=== PATIENT | female | born 1975 | race Caucasian/White ===

== ENCOUNTER 2017-08-04 10:27 | Emergency (ER) | payer OTHER ==
[~2017-08-04] VITALS: Ht 162.6 cm; Wt 90.7 kg
[~2017-08-04 10:27] MED LIST: B12 1MG PE1000 MCG/M PO; BACTRIM DS TAB1 EACH PO; CLARITIN10 M1 PO; CYCLOBENZAPRINE10 M1 PO; GOOD NEIGHBOR650 M1 PO; HYDROCHLOROTHIA25 M1 PO; HYDRODIURIL 2525 MG PO; LEVOTHYROXIN0.075 MG PO; MEDROXYPROG150 MG/ML IM; MORPHINE SULFAT15 M2 PO; PRISTIQ100 MG PO; PROPRANOLOL HCL20 MG PO; RITE AID BIO2500 MCG PO; XARELTO15 MG PO; XARELTO20 MG PO; ZOFRAN ODT4 M1 SL
--- NOTE | 2017-08-04 11:32 | ED GI/GU/ABDOMINAL COMPLAINT ---
History of Present Illness General Chief Complaint: Abdominal Pain/Flank Pain Stated Complaint: L LOWER ABD PAIN Source: patient Exam Limitations: no limitations Vital Signs & Intake/Output Vital Signs & Intake/Output Vital Signs Date Time Temp Pulse Resp B/P B/P Pulse O2 O2 Flow FiO2 Mean Ox Delivery Rate 08/04 1324 97.4 87 18 150/79 98 08/04 1143 Room Air 08/04 1037 98.1 80 18 158/116 97 Room Air Allergies Coded Allergies: NO KNOWN ALLERGIES (05/06/14) Reconcile Medications Acetaminophen (Arthritis Pain Relief) 650 MG TABLET.ER 1 TAB PO Q4P PRN PAIN TAKE NEEDED FOR PAIN SCALE 3-5 OUT OF 10. TAKE WITH FOOD. Cyanocobalamin (Cyanocobalamin Injection) 1,000 MCG/ML VIAL 1 ML PO [id number] SUPPLEMENT (Reported) Cyclobenzaprine HCl 10 MG TABLET 1 TAB PO TID muscle spasm Desvenlafaxine Succinate (Pristiq ER) 100 MG TAB.ER.24H 1 TAB PO DAILY DEPRESSION (Reported) Hydrochlorothiazide (Hydrodiuril 25 MG Tab) 25 MG TABLET 1 TAB PO DAILY BP ( Reported) Hydrochlorothiazide 25 MG TABLET 1 TAB PO DAILY WATER RETENTION (Reported) Levothyroxine Sodium 75 MCG TABLET 1 TAB PO DAILY AC THYROID (Reported) Loratadine (Claritin) 10 MG TABLET 1 TAB PO DAILY ALLERGIES (Reported) Morphine Sulfate 15 MG TABLET 1 TAB PO Q6P PRN PAIN TAKE WHEN PAIN 5-10 Ondansetron (Zofran Odt) 4 MG TAB.RAPDIS 1 TAB SL TID PRN nausea Ondansetron HCl (Zofran) 4 MG TABLET 1 TAB PO Q6-8P PRN NAUSEA PROPRANOLOL HCL (Propranolol HCl) 20 MG TABLET 1 TAB PO DAILY MIGRAINES ( Reported) Rivaroxaban (Xarelto) 15 MG TABLET 1 TAB PO BID PRN BLOOD CLOT WITH FOOD TAKE THIS MEDICATION ONCE IN AM AND ONCE IN PM FOR TOTAL OF 21 DAYS THEN CHANGE TO THEN 20MG DAILY DO NOT USE WITH ASA, NSAIDS, PLAVIX, WARAFRIN, AND OTHER MEDICATIONS WHICH TREAT OR PREVENT BLOOD CLOTS. Rivaroxaban (Xarelto) 20 MG TABLET 1 TAB PO DAILY Blood clots with food and start this after you have finished taking the 21 days worth of 15mg Xarelto twice a day (one in AM and one in PM). For this one a day 20mg you will take at the same time you took the AM dose when on the 15mg form. DO NOT USE ASA, ASPRIN, NSAIDS, PLAVIX, AND OTHER MEDICATIONS WHICH TREAT OR PREVENT BLOOD CLOTS. Sulfamethoxazole/Trimethoprim (Bactrim Ds Tablet) 1 EACH TABLET 1 TAB PO BID INFECTION (Reported) Tamsulosin HCl (Flomax) 0.4 MG CAP.ER.24H 1 CAP PO DAILY PRN KIDNEY STONE Triage Note: 42F WITH LOW PELVIC LEFT SIDED PAIN. HX HYSTERECTOMY, STILL HAS OVARIES AND TUBES. REPORTS BLEEDING NOTED IN TOILET WITH VOIDING AND ON TOILET PAPER. THIS STARTED APPROX 7AM YESTERDAY. ABDOMINAL PAIN SEVERE THIS AM WITH ASSOCIATED VOMITING. CURRENTLY SEXUALLY ACTIVE. DENIES DYSURIA. DENIES RADIATION OF PAIN, PAIN IS CONSTANT WITH WORSENING EXACERBATIONS. HX NEPHROLITHIASIS. HYPERTENSIVE IN TRIAGE, DENIES HEADACHE. LAST BM THIS MORNING AND NORMAL, DENIES BLOOD/BLACK STOOL Triage Nurses Notes Reviewed? yes ? N Is pt currently ? No Onset: Gradual Duration: better, intermittent Timing: recent history Location: left flank Radiation: no radiation HPI: Patient is a 42-year-old female with a past medical history of kidney stone PE and hypertension who is remote hysterectomy due to excessive vaginal bleeding presents emergency room with a 24-hour history of waxing waning left-sided localized flank pain. Patient states that she has darkened bloody urine denies any dysuria. Patient has had one episode today of vomiting Denies any fever chills are pain jaw pain chest pain shortness of breath dyspnea on exertion leg swelling or hemoptysis. No change in symptoms with eating or drinking Patient took Tylenol prior to arrival with significant relief of symptoms (Be Fay) Past History Travel History Traveled to [place] past 21 day No Medical History Any Pertinent Medical History? see below for history Neurological: migraine EENT: NONE Cardiovascular: hypertension Respiratory: pulmonary embolism Gastrointestinal: NONE Hepatic: NONE Renal: KIDNEY STONES Musculoskeletal: NONE Psychiatric: depression Endocrine: hypothyroidism Blood Disorders: DVT Cancer(s): NONE RADIOLOGIC TECHNOLOGIST/Reproductive: NONE History of MRSA: Yes History of VRE: No History of CDIFF: No Surgical History Surgical History: hysterectomy Psychosocial History Who do you live with Other (see notes) Services at Home None What is your primary language Hebrew Tobacco Use: Never used ETOH Use: denies use Illicit Drug Use: marijuana Family History Family History, If Any: MOTHER Blood clots SISTER FH: hypertension Hx Contributory? No (Be Fay) Review of Systems Review of Systems Constitutional: Reports: no symptoms. EENTM: Reports: no symptoms. Respiratory: Reports: no symptoms. Cardiovascular: Reports: no symptoms. GI: Reports: see HPI, abdominal pain. Genitourinary: Reports: no symptoms. Musculoskeletal: Reports: no symptoms. Skin: Reports: no symptoms. Neurological/Psychological: Reports: no symptoms. Hematologic/Endocrine: Reports: no symptoms. Immunologic/Allergic: Reports: no symptoms. All Other Systems: Reviewed and Negative (Be Fay) Physical Exam Physical Exam General Appearance: no apparent distress, alert, comfortable Head: atraumatic Eyes: Bilateral: normal appearance. Ears, Nose, Throat, Mouth: hearing grossly normal Neck: normal inspection Respiratory: normal breath sounds Cardiovascular: regular rate/rhythm Gastrointestinal: normal bowel sounds, soft, LEFT FLANK PAIN UPON PALPATION Extremities: normal range of motion Neurologic/Psych: no motor/sensory deficits, awake Skin: intact, normal color Core Measures ACS in differential dx? No Sepsis Present: No Sepsis Focused Exam Completed? No (Be Fay) Progress Differential Diagnosis: AAA, AMI, appendicitis, biliary colic, bowel obstruction , colon cancer, cholecystitis, diverticulitis, ectopic , endometritis, esophageal varices, gastritis, hepatitis, hernia, hemorrhoids, ischemic bowel, inflamm bowel dis, intrauterine , kidney stone, Corina-Vikash tear, ovarian cyst, ovarian torsion, pancreatitis, PID/cervicitis, peptic ulcer, PUD/ GERD, perforated viscous, SBO, threatened AB, UTI/pyelo Plan of Care: Orders Procedure Date/time Status Add-on Test (ER Only) 08/04 1148 Active HUMAN BETA HCG SCREEN 08/04 1125 Complete LIPASE 08/04 1040 Complete COMPREHENSIVE METABOLIC PANEL 08/04 1040 Complete CBC WITHOUT DIFFERENTIAL 08/04 1040 Complete URINE 08/04 1039 Complete URINALYSIS 08/04 1039 Complete Laboratory Tests 08/04/17 1247: Urine Color BLDY H, Urine Clarity HAZY H, Urine pH 6.0, Ur Specific Palacios 1.025, Urine Protein 30 H, Urine Ketones NEG, Urine Nitrite NEG, Urine Bilirubin NEG, Urine Urobilinogen 0.2, Ur Leukocyte Esterase NEG, Ur Microscopic SEDIMENT EXAMINED, Urine RBC PACKD H, Urine WBC RARE, Ur Epithelial Cells FEW, Urine Bacteria RARE H, Urine Hemoglobin LARGE H, Urine Glucose NEG, Urine Test NEGATIVE 08/04/17 1125: Anion Gap 11, Estimated GFR > 60, BUN/Creatinine Ratio 21.4, Glucose 101 H, Calcium 9.6, Total Bilirubin 0.8, AST 24, ALT 29, Alkaline Phosphatase 34, Total Protein 7.4, Albumin 4.6, Globulin 2.8, Albumin/Globulin Ratio 1.6, Lipase 46, Total Beta HCG NEGATIVE, CBC w Diff NO MAN DIFF REQ, RBC 4.71, MCV 87.9, MCH 29.6, MCHC 33.7, RDW 13.0, MPV 7.2 L, Gran % 70.3, Lymphocytes % 21.4, Monocytes % 7.2, Eosinophils % 0.7, Basophils % 0.4, Absolute Granulocytes 9.0 H, Absolute Lymphocytes 2.7, Absolute Monocytes 0.9 H, Absolute Eosinophils 0.1 , Absolute Basophils 0.1 Patient upon initial presentation was offered pain medications and declines, I discussed patient's CT scan findings with her for concerns of left-sided kidney stone and ovarian cyst patient was given copies of CT scan for follow-up. Patient was offered pain medications however she only requested Tylenol. Upon discharge patient looks so no apparent distress and was able to tolerate by mouth Diagnostic Imaging: Viewed by Me: CT Scan. Radiology Impression: acute abnormality Initial ED EKG: none Comments: PATIENT: MADHURI SPEAR PRESENT AGE: 42 PATIENT ACCOUNT NO: [id number] : 77 LOCATION: [facility] ORDERING PHYSICIAN: Be COLIN SERVICE DATE: 08/04/170 EXAM TYPE: CAT - CT ABD & PELVIS W/O IV CONTRAS EXAMINATION: CT ABDOMEN AND PELVIS WITHOUT CONTRAST CLINICAL INFORMATION: Left lower quadrant pain. COMPARISON: CT scan of the abdomen and pelvis dated 05/07/2014. TECHNIQUE: Multidetector volumetric imaging was performed from the superior aspect of the liver through the pubic symphysis. Sagittal and coronal reformatted images were obtained on the technologist workstation. DLP: 502.38 mGy-cm. FINDINGS: LUNG BASES: The visualized lung bases are unremarkable. LIVER, GALLBLADDER, AND BILIARY TREE: The liver is normal in size, shape, and attenuation. No focal hepatic lesion on noncontrast imaging. No biliary ductal dilatation is present. The gallbladder is unremarkable with no evidence of radiopaque gallstones, gallbladder wall thickening, or obvious pericholecystic inflammatory changes. PANCREAS: Unremarkable on noncontrast imaging. SPLEEN, ADRENAL GLANDS: Unremarkable on noncontrast imaging. KIDNEYS AND URETERS: There is mild left-sided hydroureteronephrosis due to a 0.4 x 0.2 cm calculus in the mid left ureter (series 2, image 54) with mean attenuation values of approximately 366 Hounsfield units. This calcification projects just below the left L4 transverse process. The ureter distal to this calcification is decompressed and unremarkable. The right kidney is unremarkable with no renal or ureteral calculi seen. Bilaterally, no focal renal mass is appreciated on noncontrast study. BLADDER: Partially distended and unremarkable. PELVIC VISCERA: The patient is status post hysterectomy. The right ovary is asymmetrically larger compared to the left side with small cystic changes in both ovaries seen. Largest cyst is noted in the right ovary, measuring 2.5 cm in diameter. Findings are incompletely characterized on noncontrast study, but likely due to physiologic cysts. GASTROINTESTINAL TRACT: Mild sigmoid colonic diverticulosis is seen with no evidence of acute diverticulitis. The small and large bowel are unremarkable. The appendix is unremarkable. ABDOMINAL WALL: There is a tiny fat-containing umbilical hernia. LYMPH NODES, VASCULAR: Unremarkable. OSSEOUS STRUCTURES: Mild multilevel vertebral spondylosis in the thoracolumbar spine. Benign sclerotic bone island in right pubic symphysis. IMPRESSION: 1. Mild left-sided hydroureteronephrosis due to a 0.4 x 0.2 cm mid left ureteral calcification. This calcification is small and difficult to characterize, but likely represents a uric acid stone. 2. No additional renal, ureteral or bladder calculi. Right kidney unremarkable. 3. Status post hysterectomy with prominent cystic bilateral ovaries, larger on the right side than the left. Clinical correlation is requested. Follow-up pelvic ultrasound as an outpatient in 4-6 weeks can be considered for reassessment of the ovaries. 4. Mild sigmoid colonic diverticulosis. 5. Tiny fat-containing umbilical hernia. 6. Multilevel degenerative changes in the thoracolumbar spine. DICTATED BY: Solo NÚÑEZ,Azalia Landry DATE/TIME DICTATED:08/04/171318 PHARMACY OPERATIONS SPECIALIST:RAD.HANSEN DATE/TIME TRANSCRIBED:08/04/171318 CONFIDENTIAL, DO NOT COPY WITHOUT APPROPRIATE AUTHO (Be Fay) Departure Departure Disposition: HOME OR SELF CARE Condition: Stable Clinical Impression Primary Impression: Kidney stone on left side Secondary Impressions: Ovarian cyst Referrals: Hebert NÚÑEZ,Bradly Jacobs MD,Jhonathan (PCP/Family) Additional Instructions: As discussed begin [id number] Tylenol for pain and inflammation, begin the prescription of Flomax for your symptoms and Zofran for nausea. On Sunday please follow up with urologist Dr. Ambrosio for further evaluation treatment. Prescriptions are waiting and [facility] [place]. On Sunday follow-up with your DRESSMAKER HELPER for reevaluation of your ovarian cyst noted on CT scan. Please provide them with copies of CT scan provided to the emergency room. If symptoms worsen return to emergency room Departure Forms: Customer Survey General Discharge Information Prescriptions: Current Visit Scripts Tamsulosin HCl (Flomax) 1 CAP PO DAILY PRN KIDNEY STONE #20 CAP Ondansetron HCl (Zofran) 1 TAB PO Q6-8P PRN NAUSEA #12 TAB (Be Fay) PA/GRADES 9 THRU 12 VISITING TEACHER Co-Sign Statement Statement: ED Attending supervision documentation- I saw and evaluated the patient. I have also reviewed all the pertinent lab results and diagnostic results. I agree with the findings and the plan of care as documented in the PA's/GRADES 9 THRU 12 VISITING TEACHER's documentation. x I have reviewed the ED Record and agree with the PA's/GRADES 9 THRU 12 VISITING TEACHER's documentation. [] Additions or exceptions (if any) to the PAs/GRADES 9 THRU 12 VISITING TEACHER's note and plan are summarized below: [] (Forest NÚÑEZ,Ray)
[2017-08-04 11:40] LABS: ABSOLUTE BASOPHIL COUNT 0.1 /CUMM (0.0-0.2); ABSOLUTE EOSINOPHIL COUNT 0.1 /CUMM (0.0-0.7); ABSOLUTE LYMPH COUNT 2.7 /CUMM (1.2-3.4); ABSOLUTE MONOCYTE COUNT 0.9 /CUMM (0.10-0.60); BASOPHIL % 0.4 % (0.0-2.0); EOSINOPHIL % 0.7 % (0-5); GRANULOCYTE % 70.3 % (42.2-75.2); HEMATOCRIT 41.4 % (37-47); MEAN CORPUSCULAR HGB 29.6 PG (27.0-31.0); MEAN CORPUSCULAR HGB CONC 33.7 G/DL (33.0-37.0); MEAN CORPUSCULAR VOLUME 87.9 FL (81.0-99.0); MEAN PLATELET VOLUME 7.2 FL (7.4-10.4); PLATELET COUNT 467 /CUMM (130-400); RED BLOOD CELL CT 4.71 /CUMM (4.20-5.40); WHITE BLOOD CELL COUNT 12.8 /CUMM (4.8-10.8)
[2017-08-04 13:24] VITALS: BP 150/79
--- NOTE | 2017-08-04 13:37 | CT SCAN REPORT ---
EXAMINATION: CT ABDOMEN AND PELVIS WITHOUT CONTRAST CLINICAL INFORMATION: Left lower quadrant pain. COMPARISON: CT scan of the abdomen and pelvis dated 05/07/2014. TECHNIQUE: Multidetector volumetric imaging was performed from the superior aspect of the liver through the pubic symphysis. Sagittal and coronal reformatted images were obtained on the technologist workstation. DLP: 502.38 mGy-cm. FINDINGS: LUNG BASES: The visualized lung bases are unremarkable. LIVER, GALLBLADDER, AND BILIARY TREE: The liver is normal in size, shape, and attenuation. No focal hepatic lesion on noncontrast imaging. No biliary ductal dilatation is present. The gallbladder is unremarkable with no evidence of radiopaque gallstones, gallbladder wall thickening, or obvious pericholecystic inflammatory changes. PANCREAS: Unremarkable on noncontrast imaging. SPLEEN, ADRENAL GLANDS: Unremarkable on noncontrast imaging. KIDNEYS AND URETERS: There is mild left-sided hydroureteronephrosis due to a 0.4 x 0.2 cm calculus in the mid left ureter (series 2, image 54) with mean attenuation values of approximately 366 Hounsfield units. This calcification projects just below the left L4 transverse process. The ureter distal to this calcification is decompressed and unremarkable. The right kidney is unremarkable with no renal or ureteral calculi seen. Bilaterally, no focal renal mass is appreciated on noncontrast study. BLADDER: Partially distended and unremarkable. PELVIC VISCERA: The patient is status post hysterectomy. The right ovary is asymmetrically larger compared to the left side with small cystic changes in both ovaries seen. Largest cyst is noted in the right ovary, measuring 2.5 cm in diameter. Findings are incompletely characterized on noncontrast study, but likely due to physiologic cysts. GASTROINTESTINAL TRACT: Mild sigmoid colonic diverticulosis is seen with no evidence of acute diverticulitis. The small and large bowel are unremarkable. The appendix is unremarkable. ABDOMINAL WALL: There is a tiny fat-containing umbilical hernia. LYMPH NODES, VASCULAR: Unremarkable. OSSEOUS STRUCTURES: Mild multilevel vertebral spondylosis in the thoracolumbar spine. Benign sclerotic bone island in right pubic symphysis. IMPRESSION: 1. Mild left-sided hydroureteronephrosis due to a 0.4 x 0.2 cm mid left ureteral calcification. This calcification is small and difficult to characterize, but likely represents a uric acid stone. 2. No additional renal, ureteral or bladder calculi. Right kidney unremarkable. 3. Status post hysterectomy with prominent cystic bilateral ovaries, larger on the right side than the left. Clinical correlation is requested. Follow-up pelvic ultrasound as an outpatient in 4-6 weeks can be considered for reassessment of the ovaries. 4. Mild sigmoid colonic diverticulosis. 5. Tiny fat-containing umbilical hernia. 6. Multilevel degenerative changes in the thoracolumbar spine.
[2017-08-04] MEDS ORDERED: ZOFRAN4 M2 PO (13:51)
[2017-08-04] MEDS ORDERED: FLOMAX0.4 M1 PO (13:51)
== END 2017-08-04 14:22 ==
LOC: ERH 10:27
PROVIDERS: Emergency Medicine
DX: N20.0 Calculus of kidney (principal); N83.201 Unspecified ovarian cyst, right side; N83.202 Unspecified ovarian cyst, left side
CPT/HCPCS: 74176; 81001; 81025